=== PATIENT | female | born 1990 | race Caucasian/White ===

== ENCOUNTER 2016-06-10 09:25 | Emergency (ER) | payer MEDICAID, OTHER ==
[~2016-06-10] VITALS: Ht 160 cm; Wt 64.0 kg
[2016-06-10 09:50] LABS: *BILIRUBIN,URIN NEGATIVE (NEGATIVE); *BLOOD, URINE Trace-intact (NEGATIVE); *CLARITY,URINE CLEAR (CLEAR); *COLOR,URINE YELLOW (YELLOW); *KETONES,URINE NEGATIVE (NEGATIVE); *PROTEIN,URINE NEGATIVE (NEGATIVE); *UROBILINOGEN,URINE 0.2 E.U./dl (NORMAL); LEUKOCYTE ESTERASE ,URINE NEGATIVE (NEGATIVE); NITRITE, URINE NEGATIVE (NEGATIVE); PH,URINE 6.5 (5.0-8.0); UGLUCOSE NEGATIVE (NEGATIVE)
[2016-06-10 09:55] LABS: *URINE HCG, QUAL NEGATIVE (NEGATIVE)
[2016-06-10] MEDS ORDERED: DICYCLOMINE HCL 10 MG/5 ML UDC LIQ PO ONE (10:00)
[2016-06-10] MEDS ORDERED: MAG HYDROX/AL HYDROX/SIMETH 30 ML LIQUID UDC PO ONE (10:00)
[2016-06-10] MEDS ORDERED: MAG HYDROX/AL HYDROX/SIMETH 30 ML LIQUID UDC ONE (10:01)
[2016-06-10] MEDS ORDERED: DICYCLOMINE HCL 10 MG/5 ML UDC LIQ ONE ×2 (10:01)
[2016-06-10 10:21] LABS: BACTERIA,URINE FEW /HPF (NONE SEEN); RBC,URINE 0-3 /HPF (0-3); WBC,URINE 0-3 /HPF (0-3)
[2016-06-10 10:22] LABS: MUCUS,URINE FEW /LPF (0-FEW); SQUAMOUS EPITHELIAL CELL,UR MANY /HPF (NONE SEEN)
[2016-06-10] MEDS ORDERED: IV NORMAL SALINE 1000 ML BAG IV ONE (10:30)
[2016-06-10] MEDS ORDERED: HYDROMORPHONE 1 MG/1 ML DISP.SYRIN IV ONE (10:30)
[2016-06-10] MEDS ORDERED: PANTOPRAZOLE SODIUM 40 MG VIAL IV ONE (10:30)
[2016-06-10] MEDS ORDERED: ONDANSETRON 4 MG/2 ML VIAL IV ONE (10:30)
[2016-06-10] MEDS ORDERED: PANTOPRAZOLE SODIUM 40 MG VIAL ONE (10:39)
[2016-06-10] MEDS ORDERED: HYDROMORPHONE 1 MG/1 ML DISP.SYRIN ONE (10:39)
[2016-06-10] MEDS ORDERED: ONDANSETRON 4 MG/2 ML VIAL ONE (10:39)
[2016-06-10 10:50] LABS: BASOPHILS % (AUTO) 0.2 % (0.0-2.0); EOSINOPHILS # (AUTO) 0.1 K/uL (0.0-0.7); EOSINOPHILS % (AUTO) 0.7 % (0.0-7.0); HEMOGLOBIN 15.1 g/dL (10.9-14.3); LYMPHOCYTES # (AUTO) 1.4 K/uL (40.0-85.0); LYMPHOCYTES % (AUTO) 16.3 % (20.5-51.5); MEAN CORPUSCULAR HEMOGLOBIN 25.7 uug (24.7-32.8); MEAN CORPUSCULAR HGB CONC 33 g/dL (32.3-35.6); MEAN CORPUSCULAR VOLUME 78.2 fL (75.5-95.3); MONOCYTES # (AUTO) 0.4 K/uL (2.0-10.0); MONOCYTES % (AUTO) 4.1 % (0.0-11.0); NEUTROPHILS # (AUTO) 6.9 K/uL (1.8-8.9); NEUTROPHILS % (AUTO) 78.7 % (38.5-71.5); PLATELET COUNT (AUTO) 163 K/uL (179-408); RED BLOOD CELL COUNT(AUTO) 5.88 MIL/uL (3.63-4.92); RED CELL DISTRIBUTION WIDTH 14.6 % (12.3-17.7); WHITE BLOOD COUNT (AUTO) 8.8 K/uL (3.8-11.8)
[2016-06-10 10:54] LABS: ALBUMIN 3.9 g/dL (3.4-5.0); BILIRUBIN,DIRECT 0.1 mg/dL (0.0-0.2); BILIRUBIN,TOTAL 0.2 mg/dL (0.2-1.0); CALCIUM 9.3 mg/dL (8.5-10.1); CREATININE 0.7 mg/dL (0.6-1.3); POTASSIUM 4.7 mmol/L (3.5-5.1); TOTAL PROTEIN, SERUM 7.4 g/dL (6.4-8.2)
--- NOTE | 2016-06-10 11:30 | NUR ---
Patient is resting comfortably in bed with eyes closed. Family is at bedside, for discharge after the IVF are done.
--- NOTE | 2016-06-10 11:40 | NUR ---
Patient discharged to home in stable conditon. Written and verbal after care instructions given to patient and spouse. Patient & spouse verbalized understanding of instructions.
--- NOTE | 2016-06-10 11:44 | NUR ---
IV removed. Catheter intact and site benign. Pressure and 4x4 gauze applied to site. No bleeding noted. PATIENT IS PAIN FREE AT THIS TIME.
== END 2016-06-10 11:45 | disposition home or self-care (01) ==
LOC: ER 09:25
DX: K29.70 Gastritis, unspecified, without bleeding (principal); Z88.0 Allergy status to penicillin
CPT/HCPCS: 36415; 80048; 80076; 81001; 83690; 84703; 85025; 96374; 96375; 99284; A4663; C9113; J1170; J2405; J7030

== ENCOUNTER 2016-07-06 04:19 | Emergency (ER) | payer OTHER ==
[~2016-07-06] VITALS: Ht 160 cm; Wt 64.4 kg
--- NOTE | 2016-07-06 04:33 | NUR ---
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 Pt denies dizziness, CP, SOB, no other complaints, no distress noted.
[2016-07-06] MEDS: IV NORMAL SALINE 1000 ML BAG IV ONE (04:52)
[2016-07-06 05:03] LABS: BASOPHILS % (AUTO) 0.5 % (0.0-2.0); EOSINOPHILS # (AUTO) 0.2 K/uL (0.0-0.7); EOSINOPHILS % (AUTO) 1.7 % (0.0-7.0); HEMATOCRIT 41.3 % (37-47); HEMOGLOBIN 13.5 G/DL (12.0-16.0); LYMPHOCYTES # (AUTO) 2.7 K/UL (0.8-4.8); LYMPHOCYTES % (AUTO) 28.8 % (20.5-51.5); MEAN CORPUSCULAR HEMOGLOBIN 25.5 UUG (27.0-31.0); MEAN CORPUSCULAR HGB CONC 33 g/dL (32.0-37.0); MEAN CORPUSCULAR VOLUME 77.7 FL (81.0-99.0); MONOCYTES # (AUTO) 0.5 K/UL (0.1-1.30); MONOCYTES % (AUTO) 4.9 % (0.0-11.0); NEUTROPHILS % (AUTO) 64.1 % (38.5-71.5); PLATELET COUNT (AUTO) 187 K/UL (150-450); RED BLOOD CELL COUNT(AUTO) 5.31 MIL/UL (4.2-5.4); RED CELL DISTRIBUTION WIDTH 15.2 % (11.5-14.5); WHITE BLOOD COUNT (AUTO) 9.4 K/UL (4.0-11.2)
[2016-07-06] MEDS: LIDOCAINE VISCUS 2% 15 ML UDC MM ONE (05:03)
[2016-07-06] MEDS: MAG HYDROX/AL HYDROX/SIMETH 30 ML LIQUID UDC PO ONE (05:03)
[2016-07-06] MEDS: PANTOPRAZOLE SODIUM IV 40 MG in IV DEXTROSE 5% 100 ML IV ONE (05:07)
[2016-07-06] MEDS ORDERED: PANTOPRAZOLE SODIUM 40 MG VIAL ONE (05:08)
[2016-07-06] MEDS ORDERED: MAG HYDROX/AL HYDROX/SIMETH 30 ML LIQUID UDC ONE (05:08)
[2016-07-06] MEDS ORDERED: LIDOCAINE VISCUS 2% 15 ML UDC ONE (05:08)
[2016-07-06 05:09] LABS: ANISOCYTOSIS 1+; HYPOCHROMASIA 1+
[2016-07-06 05:14] LABS: ALANINE AMINOTRANSFERASE 26 U/L (14-59); ALBUMIN 3.6 g/dL (3.4-5.0); ALKALINE PHOSPHATASE 88 U/L (50-136); ASPARTATE AMINOTRANSFERASE 11 U/L (15-37); BILIRUBIN,DIRECT < 0.1 mg/dL (0.0-0.2); BILIRUBIN,TOTAL 0.2 mg/dL (0.2-1.0); CALCIUM 8.9 mg/dL (8.5-10.1); CARBON DIOXIDE 28 mmol/L (21-32); CHLORIDE 104 mmol/L (98-107); CREATININE 0.6 mg/dL (0.6-1.3); GFR 124 mL/min (>60); GLUCOSE 100 mg/dL (74-106); LIPASE 142 U/L (73-393); POTASSIUM 3.6 mmol/L (3.5-5.1); SODIUM SERUM 141 mmol/L (136-145); UREA NITROGEN, BLOOD 11 mg/dL (7-18)
[2016-07-06 05:16] LABS: *BILIRUBIN,URIN NEGATIVE (NEGATIVE); *BLOOD, URINE NEGATIVE (NEGATIVE); *CLARITY,URINE CLEAR (CLEAR); *COLOR,URINE YELLOW (YELLOW); *KETONES,URINE NEGATIVE (NEGATIVE); *PROTEIN,URINE NEGATIVE (NEGATIVE); *UROBILINOGEN,URINE 0.2 E.U./dl (NORMAL); LEUKOCYTE ESTERASE ,URINE NEGATIVE (NEGATIVE); NITRITE, URINE NEGATIVE (NEGATIVE); PH,URINE 8.5 (5.0-8.0); UGLUCOSE NEGATIVE (NEGATIVE)
[2016-07-06 05:23] LABS: *URINE HCG, QUAL NEGATIVE (NEGATIVE); BACTERIA,URINE FEW /HPF (NONE SEEN); RBC,URINE NONE SEEN /HPF (0-3); SQUAMOUS EPITHELIAL CELL,UR MODERATE /HPF (NONE SEEN); WBC,URINE 0-3 /HPF (0-3)
--- NOTE | 2016-07-06 05:25 | NUR ---
GI cocktail noneffective, pt still has same pain, 7-10/05. Will notify
[2016-07-06] MEDS: ONDANSETRON 4 MG/2 ML VIAL IV ONE (05:45)
[2016-07-06] MEDS: MORPHINE SULFATE 2 MG/1 ML DISP.SYRIN IV ONE ×2 (05:45→06:15)
[2016-07-06] MEDS ORDERED: MORPHINE SULFATE 2 MG/1 ML DISP.SYRIN ONE ×2 (05:49→06:22)
[2016-07-06] MEDS ORDERED: ONDANSETRON 4 MG/2 ML VIAL ONE ×2 (05:49→07:11)
[2016-07-06] MEDS ORDERED: DICYCLOMINE HCL 10 MG/5 ML UDC LIQ PO ONE (06:15)
[2016-07-06] MEDS: DICYCLOMINE HCL 10 MG/5 ML UDC LIQ PO ONE (06:20)
[2016-07-06] MEDS ORDERED: DICYCLOMINE HCL 10 MG/5 ML UDC LIQ ONE (06:27)
[2016-07-06] MEDS: HYDROMORPHONE 1 MG/1 ML DISP.SYRIN IV ONE (07:06)
[2016-07-06] MEDS: ONDANSETRON IV *ER 4 MG/2 ML VIAL IV ONE (07:06)
[2016-07-06] MEDS ORDERED: HYDROMORPHONE 1 MG/1 ML DISP.SYRIN ONE (07:11)
--- NOTE | 2016-07-06 07:22 | NUR ---
Pt states pain is 5/10. Removed IV 20g intact, site okay, bandaged. Gave pt RX and d/c instructions, verbalized understanding. Pt's is enroute to pick her up.
== END 2016-07-06 07:25 | disposition home or self-care (01) ==
LOC: ER 04:24
DX: K29.70 Gastritis, unspecified, without bleeding (principal); Z88.0 Allergy status to penicillin
CPT/HCPCS: 36415; 83690; 84703; 85025; A4663; C9113; J1170; J2270; J2405; J7030; J7060

== ENCOUNTER 2016-07-06 23:27 | Emergency (ER) | payer OTHER ==
[~2016-07-06] VITALS: Ht 160 cm; Wt 64.4 kg
--- NOTE | 2016-07-06 23:44 | NUR ---
Pt returning to ER, d/c this AM, c/o midline upper ABD pain, 10/05, denies n/v. States she woke up with hives after d/c this AM, took benadryl which resolved that. No other complaints, no distress noted.
[2016-07-07] MEDS: MAG HYDROX/AL HYDROX/SIMETH 30 ML LIQUID UDC PO ONE (00:10)
[2016-07-07] MEDS: LIDOCAINE VISCUS 2% 15 ML UDC MM ONE (00:10)
[2016-07-07] MEDS: FAMOTIDINE. 20 MG/2 ML VIAL IV ONE (00:15)
[2016-07-07] MEDS ORDERED: LIDOCAINE VISCUS 2% 15 ML UDC ONE (00:17)
[2016-07-07] MEDS ORDERED: MAG HYDROX/AL HYDROX/SIMETH 30 ML LIQUID UDC ONE (00:17)
[2016-07-07] MEDS ORDERED: KETOROLAC TROMETHAMINE 15 MG INJ ONE (00:17)
[2016-07-07] MEDS ORDERED: FAMOTIDINE. 20 MG/2 ML VIAL IV ONE (00:18)
[2016-07-07] MEDS: KETOROLAC TROMETHAMINE 15 MG INJ IV ONE (00:21)
--- NOTE | 2016-07-07 00:22 | NUR ---
Pt states the GI cocktail did not help much, pain went from 8/10 to 7/10. Admin Toradol.
[2016-07-07 00:24] LABS: CALCIUM 8.9 mg/dL (8.5-10.1); CREATININE 0.6 mg/dL (0.6-1.3)
[2016-07-07 00:30] LABS: ALBUMIN 3.3 g/dL (3.4-5.0); BILIRUBIN,DIRECT 0.1 mg/dL (0.0-0.2); BILIRUBIN,TOTAL 0.3 mg/dL (0.2-1.0); TOTAL PROTEIN, SERUM 6.7 g/dL (6.4-8.2)
[2016-07-07 00:31] LABS: BASOPHILS % (AUTO) 0.1 % (0.0-2.0); EOSINOPHILS # (AUTO) 0.2 K/uL (0.0-0.7); EOSINOPHILS % (AUTO) 1.6 % (0.0-7.0); HEMATOCRIT 40.7 % (37-47); HEMOGLOBIN 13.4 G/DL (12.0-16.0); LYMPHOCYTES # (AUTO) 1.4 K/UL (0.8-4.8); LYMPHOCYTES % (AUTO) 13.6 % (20.5-51.5); MEAN CORPUSCULAR HEMOGLOBIN 25.4 UUG (27.0-31.0); MEAN CORPUSCULAR HGB CONC 33 g/dL (32.0-37.0); MEAN CORPUSCULAR VOLUME 77.3 FL (81.0-99.0); MONOCYTES # (AUTO) 0.4 K/UL (0.1-1.30); MONOCYTES % (AUTO) 3.6 % (0.0-11.0); NEUTROPHILS # (AUTO) 8.2 K/UL (1.8-8.9); NEUTROPHILS % (AUTO) 81.1 % (38.5-71.5); PLATELET COUNT (AUTO) 193 K/UL (150-450); RED BLOOD CELL COUNT(AUTO) 5.26 MIL/UL (4.2-5.4); WHITE BLOOD COUNT (AUTO) 10.3 K/UL (4.0-11.2)
[2016-07-07 00:42] LABS: ANISOCYTOSIS 1+; HYPOCHROMASIA 1+
--- NOTE | 2016-07-07 00:48 | NUR ---
Pt states pain is now down to 2/10. Removed IV, 20g, left hand, intact, site okay, bandaged. Gave pt d/c instructions, verbalized understanding.
== END 2016-07-07 00:56 | disposition home or self-care (01) ==
LOC: ER 23:33
DX: R10.13 Epigastric pain (principal); F10.20 Alcohol dependence, uncomplicated; Z88.0 Allergy status to penicillin
CPT/HCPCS: 36415; 83690; 84703; 85025; A4663; J1885; J3490

== ENCOUNTER 2017-02-21 16:59 | Emergency (ER) | payer MEDICAID, OTHER ==
[~2017-02-21] VITALS: Ht 160 cm; Wt 70.8 kg
[2017-02-21 18:05] LABS: *BILIRUBIN,URIN NEGATIVE (NEGATIVE); *BLOOD, URINE Trace-intact (NEGATIVE); *COLOR,URINE DARK YELLOW (YELLOW); *KETONES,URINE NEGATIVE (NEGATIVE); *PROTEIN,URINE NEGATIVE (NEGATIVE); *UROBILINOGEN,URINE 0.2 E.U./dl (NORMAL); LEUKOCYTE ESTERASE ,URINE TRACE (NEGATIVE); NITRITE, URINE POSITIVE (NEGATIVE); UGLUCOSE NEGATIVE (NEGATIVE)
[2017-02-21 18:07] LABS: *URINE HCG, QUAL NEGATIVE (NEGATIVE)
[2017-02-21 18:21] LABS: *CLARITY,URINE HAZY (CLEAR)
[2017-02-21 18:22] LABS: BACTERIA,URINE FEW /HPF (NONE SEEN); SQUAMOUS EPITHELIAL CELL,UR MODERATE /HPF (NONE SEEN); URINE AMORPHOUS PHOSPHATES FEW /HPF
--- NOTE | 2017-02-21 19:40 | NUR ---
MSE COMPLETED, PT D/C'D HOME, ACI/RX X1 GIVEN. PT AMBULATED W/O DIFF/TOOK ALL BELONGINGS
[2017-02-21 19:42] VITALS: BP 129/82
== END 2017-02-21 19:43 | disposition home or self-care (01) ==
LOC: ER 16:59
DX: N39.0 Urinary tract infection, site not specified (principal); Z88.0 Allergy status to penicillin
CPT/HCPCS: 81001; 84703; 99284; A4663

== ENCOUNTER 2018-09-12 11:52 | Emergency (ER) | payer MEDICAID ==
[~2018-09-12] VITALS: Ht 160 cm; Wt 61.2 kg
--- NOTE | 2018-09-12 12:09 | NUR ---
PT WAS EVALUATED BY DR BONILLA. PT WAS D/C'd TO HOME. D/C INSTRUCTIONS GIVEN TO THE PT.
[2018-09-12 12:10] VITALS: BP 125/70
== END 2018-09-12 12:12 | disposition home or self-care (01) ==
LOC: ER 11:54
DX: K29.70 Gastritis, unspecified, without bleeding (principal); Z88.0 Allergy status to penicillin
CPT/HCPCS: A4663

== ENCOUNTER 2018-09-14 07:01 | Emergency (ER) | payer MEDICAID ==
[~2018-09-14] VITALS: Ht 160 cm; Wt 60.3 kg
--- NOTE | 2018-09-14 07:20 | NUR ---
PT IS IN ROOM #2B. DR SHAH EVALUATED THE PT.
[2018-09-14] MEDS ORDERED: MORPHINE SULFATE 2 MG/1 ML DISP.SYRIN IV ONE (07:30)
[2018-09-14] MEDS ORDERED: IV NORMAL SALINE 1000 ML BAG IV ONE (07:30)
[2018-09-14] MEDS ORDERED: ONDANSETRON 4 MG/2 ML VIAL IV ONE (07:30)
[2018-09-14] MEDS ORDERED: MORPHINE SULFATE 2 MG/1 ML DISP.SYRIN ONE (07:42)
[2018-09-14] MEDS ORDERED: ONDANSETRON 4 MG/2 ML VIAL ONE (07:42)
[2018-09-14 07:43] LABS: BASOPHILS % (AUTO) 0.4 % (0.0-2.0); EOSINOPHILS % (AUTO) 0.5 % (0.0-7.0); HEMOGLOBIN 14.5 g/dL (10.9-14.3); LYMPHOCYTES # (AUTO) 1.7 K/uL (20.0-40.0); LYMPHOCYTES % (AUTO) 20.1 % (20.5-51.5); MEAN CORPUSCULAR HEMOGLOBIN 28.8 uug (24.7-32.8); MEAN CORPUSCULAR HGB CONC 34 g/dL (32.3-35.6); MEAN CORPUSCULAR VOLUME 85.4 fL (75.5-95.3); MONOCYTES # (AUTO) 0.5 K/uL (2.0-10.0); MONOCYTES % (AUTO) 5.3 % (0.0-11.0); NEUTROPHILS # (AUTO) 6.4 K/uL (1.8-8.9); NEUTROPHILS % (AUTO) 73.7 % (38.5-71.5); PLATELET COUNT (AUTO) 176 K/uL (179-408); RED BLOOD CELL COUNT(AUTO) 5.04 MIL/uL (3.63-4.92); WHITE BLOOD COUNT (AUTO) 8.6 K/uL (3.8-11.8)
[2018-09-14 07:50] LABS: CREATININE 0.8 mg/dL (0.6-1.3); POTASSIUM 3.8 mmol/L (3.5-5.1)
[2018-09-14 08:00] LABS: *BILIRUBIN,URIN NEGATIVE (NEGATIVE); *CLARITY,URINE CLEAR (CLEAR); *COLOR,URINE YELLOW (YELLOW); *KETONES,URINE NEGATIVE (NEGATIVE); BILIRUBIN,DIRECT 0.2 mg/dL (0.0-0.2); BILIRUBIN,TOTAL 0.5 mg/dL (0.2-1.0); LEUKOCYTE ESTERASE ,URINE NEGATIVE (NEGATIVE); NITRITE, URINE NEGATIVE (NEGATIVE); TOTAL PROTEIN, SERUM 7.6 g/dL (6.4-8.2); UGLUCOSE NEGATIVE (NEGATIVE)
[2018-09-14 08:02] LABS: *BLOOD, URINE TRACE (NEGATIVE)
[2018-09-14 08:11] LABS: BACTERIA,URINE FEW /HPF (NONE SEEN); RBC,URINE 0-3 /HPF (0-3); SQUAMOUS EPITHELIAL CELL,UR FEW /HPF (NONE SEEN); WBC,URINE 0-3 /HPF (0-3)
[2018-09-14] MEDS ORDERED: MORPHINE SULFATE 4 MG/1 ML DISP.SYRIN ONE (09:39)
[2018-09-14] MEDS ORDERED: MORPHINE SULFATE 4 MG/1 ML DISP.SYRIN IV ONE (09:45)
[2018-09-14] MEDS ORDERED: METRONIDAZOLE 500 MG TABLET PO ONE (10:15)
[2018-09-14] MEDS ORDERED: HYDROMORPHONE 1 MG/1 ML DISP.SYRIN IV ONE (10:15)
[2018-09-14] MEDS ORDERED: KETOROLAC TROMETHAMINE 30 MG INJ IVP ONE (10:15)
[2018-09-14] MEDS ORDERED: LEVOFLOXACIN 500 MG TABLET PO ONE (10:15)
[2018-09-14] MEDS ORDERED: HYDROMORPHONE 1 MG/1 ML DISP.SYRIN ONE (10:23)
[2018-09-14] MEDS ORDERED: KETOROLAC TROMETHAMINE 30 MG INJ ONE (10:24)
[2018-09-14] MEDS ORDERED: LEVOFLOXACIN 500 MG TABLET ONE (10:26)
[2018-09-14] MEDS ORDERED: METRONIDAZOLE 500 MG TABLET ONE (10:26)
--- NOTE | 2018-09-14 10:41 | NUR ---
PT WAS D/C'd TO HOME. D/C INSTRUCTIONS GIVEN TO THE PT.
[2018-09-14 10:59] VITALS: BP 121/66
--- NOTE | 2018-09-14 10:59 | NUR ---
PT WAS D/C'd TO HOME. D/C INSTRUCTIONS GIVEN TO THE PT.
== END 2018-09-14 11:00 | disposition home or self-care (01) ==
LOC: ER 07:02
DX: K57.32 Diverticulitis of large intestine without perforation or abscess without bleeding (principal); Z88.0 Allergy status to penicillin
CPT/HCPCS: 36415; 74176; 76705; 76856; 80048; 80076; 81000; 81001; 84702; 85025; 96374; 96375; 96376; 99284; J1170; J1885; J2270 ×2; J2405; A4663; J7030

== ENCOUNTER 2018-10-23 18:28 | Emergency (ER) | payer MEDICAID ==
[~2018-10-23] VITALS: Ht 160 cm; Wt 60.8 kg
--- NOTE | 2018-10-23 19:30 | NUR ---
RECEIVED PT C/O ABDOMINAL PN FROM HOME PPMDHX: DIVERTICULITIS LAST WEEK, RECEIVED ABX , +FEVER CURRENTLYD DENIES CHILLS, NVD, PT NAD ABLE TO SPEAK CLEAR COMPLETE SENTENCES, AMBULATORY WITH STABLE GAIT. DENIES GUARDING, DENIES RESTLESSNESS. MD AT BEDSIDE FOR HX AND ROLAN
[2018-10-23] MEDS ORDERED: IV NORMAL SALINE 1000 ML BAG IV ONE (20:15)
[2018-10-23 20:26] LABS: *BILIRUBIN,URIN NEGATIVE (NEGATIVE); *COLOR,URINE YELLOW (YELLOW); *KETONES,URINE NEGATIVE (NEGATIVE); LEUKOCYTE ESTERASE ,URINE TRACE (NEGATIVE); NITRITE, URINE NEGATIVE (NEGATIVE); UGLUCOSE NEGATIVE (NEGATIVE)
[2018-10-23 20:28] LABS: *URINE HCG, QUAL NEGATIVE (NEGATIVE)
[2018-10-23 20:32] LABS: BASOPHILS % (AUTO) 0.3 % (0.0-2.0); EOSINOPHILS % (AUTO) 0.3 % (0.0-7.0); HEMATOCRIT 42.7 % (31.2-41.9); HEMOGLOBIN 14.4 g/dL (10.9-14.3); LYMPHOCYTES # (AUTO) 1.3 K/uL (20.0-40.0); LYMPHOCYTES % (AUTO) 15.8 % (20.5-51.5); MEAN CORPUSCULAR HEMOGLOBIN 28.5 uug (24.7-32.8); MEAN CORPUSCULAR HGB CONC 34 g/dL (32.3-35.6); MEAN CORPUSCULAR VOLUME 84.2 fL (75.5-95.3); MONOCYTES # (AUTO) 0.4 K/uL (2.0-10.0); MONOCYTES % (AUTO) 4.8 % (0.0-11.0); NEUTROPHILS # (AUTO) 6.6 K/uL (1.8-8.9); NEUTROPHILS % (AUTO) 78.8 % (38.5-71.5); PLATELET COUNT (AUTO) 155 K/uL (179-408); RED BLOOD CELL COUNT(AUTO) 5.07 MIL/uL (3.63-4.92); WHITE BLOOD COUNT (AUTO) 8.4 K/uL (3.8-11.8)
[2018-10-23 20:37] LABS: *BLOOD, URINE TRACE (NEGATIVE); *CLARITY,URINE CLOUDY (CLEAR)
[2018-10-23 20:39] LABS: BACTERIA,URINE MODERATE /HPF (NONE SEEN); MUCUS,URINE MANY /LPF (0-FEW); SQUAMOUS EPITHELIAL CELL,UR MANY /HPF (NONE SEEN); URINE AMORPHOUS PHOSPHATES MODERATE /HPF
[2018-10-23 20:41] LABS: CREATININE 0.8 mg/dL (0.6-1.3); POTASSIUM 4.1 mmol/L (3.5-5.1)
[2018-10-23 20:52] LABS: BILIRUBIN,DIRECT 0.1 mg/dL (0.0-0.2); BILIRUBIN,TOTAL 0.4 mg/dL (0.2-1.0); TOTAL PROTEIN, SERUM 7.8 g/dL (6.4-8.2)
[2018-10-23] MEDS ORDERED: SULFAMETH/TRIMETH 800/160 MG TABLET PO ONE (21:30)
--- NOTE | 2018-10-23 21:40 | NUR ---
Patient discharged to home in stable conditon. Written and verbal after care instructions given. Patient verbalizes understanding of instructions.
[2018-10-23] MEDS ORDERED: SULFAMETH/TRIMETH 800/160 MG TABLET ONE (21:42)
[2018-10-23 23:15] VITALS: BP 120/80
== END 2018-10-23 21:40 | disposition home or self-care (01) ==
LOC: ER 18:28
DX: N39.0 Urinary tract infection, site not specified (principal); Z88.0 Allergy status to penicillin
CPT/HCPCS: 36415; 83690; 84703; 85025; 87086; A4663; J7030

== ENCOUNTER 2019-02-15 11:00 | Emergency (ER) | payer MEDICAID ==
[~2019-02-15] VITALS: Ht 160 cm; Wt 63.5 kg
--- NOTE | 2019-02-15 11:20 | NUR ---
Patient ambulated with stable gait. A/Ox4. Patient came for c/o left sided lump on her breast.
--- NOTE | 2019-02-15 11:31 | NUR ---
Female press offbearer, Bessy nursing supervisor clam bed, accompanied female patient for breast exam.
[2019-02-15 11:44] VITALS: BP 131/75
--- NOTE | 2019-02-15 11:44 | NUR ---
Patient discharged to home in stable conditon. Written and verbal after care instructions given. Patient verbalizes understanding of instructions. Patient ambulated with stable gait.
== END 2019-02-15 11:47 | disposition home or self-care (01) ==
LOC: ER 11:00
DX: N60.12 Diffuse cystic mastopathy of left breast (principal); Z88.0 Allergy status to penicillin
CPT/HCPCS: A4663

== ENCOUNTER 2019-02-25 22:39 | Emergency (ER) | payer MEDICAID ==
[~2019-02-25] VITALS: Ht 160 cm; Wt 61.2 kg
[2019-02-25] MEDS ORDERED: [UNRECOGNIZED DRUG - REMARK] (22:52)
--- NOTE | 2019-02-25 23:35 | NUR ---
PT WAS FR HOME AMBULATORY W/ STABLE GAIT L BREAST TENDERNESS AND PAIN X1WK LMP [id number] PT AOX4 ABLE TO SPEAK CLEAR AND COMPLETE SENTENCES DENIES FEVERS/CHILLS/NVD/JOINT PAIN MONITORED ACCORDINGLY
[2019-02-25] MEDS ORDERED: KETOROLAC TROMETHAMINE 30 MG INJ ONE (23:43)
[2019-02-25] MEDS ORDERED: VANCOMYCIN IV 200 ML ONE (23:43)
[2019-02-25] MEDS ORDERED: CEFTRIAXONE /D5W 50ML IVPB **ER PYXIS IV ONE (23:43)
[2019-02-25] MEDS ORDERED: CEFTRIAXONE 1 G in IV DEXTROSE 5% 50 ML IV ONE (23:45)
[2019-02-25] MEDS ORDERED: KETOROLAC TROMETHAMINE 30 MG INJ IVP ONE (23:45)
[2019-02-25] MEDS ORDERED: VANCOMYCIN IV 1,000 MG in IV DEXTROSE 5% 250 ML IV ONE (23:45)
[2019-02-26] MEDS ORDERED: diphenhydrAMINE 50 MG/1 ML VIAL ONE (00:29)
[2019-02-26] MEDS ORDERED: diphenhydrAMINE 50 MG/1 ML VIAL IV ONE (00:30)
--- NOTE | 2019-02-26 00:33 | NUR ---
PT DESCRIBED GENERALIZED PRURITUS AFTER 18MINS INFUSION OF VANCOMYCIN ABX ON HOLD PT ABLE TO TOLERATE BENADRYL PER IV ORDERED
[2019-02-26] MEDS ORDERED: MORPHINE SULFATE 4 MG/1 ML DISP.SYRIN IV ONE (01:00)
[2019-02-26] MEDS ORDERED: ONDANSETRON 4 MG/2 ML VIAL IV ONE (01:00)
[2019-02-26] MEDS ORDERED: CLINDAMYCIN PHOSPHATE IV 900 MG in IV DEXTROSE 5% 100 ML IV ONE (01:00)
[2019-02-26] MEDS ORDERED: MORPHINE SULFATE 4 MG/1 ML DISP.SYRIN ONE (01:50)
[2019-02-26] MEDS ORDERED: CLINDAMYCIN PHOSPHATE 900 MG/6 ML VIAL ONE (01:50)
[2019-02-26] MEDS ORDERED: ONDANSETRON 4 MG/2 ML VIAL ONE (01:51)
--- NOTE | 2019-02-26 03:24 | NUR ---
Patient discharged to home in stable conditon. Written and verbal after care instructions given. Patient verbalizes understanding of instructions. AMBULATORY W/ STABLE GAIT ALL BELONGINGS W/ PT
[2019-02-26 03:25] VITALS: BP 135/89
== END 2019-02-26 03:26 | disposition home or self-care (01) ==
LOC: ER 22:44
DX: N61.0 Mastitis without abscess (principal); Z88.0 Allergy status to penicillin; Z79.2 Long term (current) use of antibiotics; Z79.899 Other long term (current) drug therapy
CPT/HCPCS: 87070; 96365; 96366; 96368; 96375; 99283; J0696; J1200; J1885; J2270; J2405; J3370; J3490; J7060; A4663

== ENCOUNTER 2019-02-28 16:23 | Emergency (ER) | payer MEDICAID ==
[~2019-02-28] VITALS: Ht 160 cm; Wt 61.2 kg
[~2019-02-28 16:23] MED LIST: [UNRECOGNIZED DRUG - REMARK]
[2019-02-28] MEDS ORDERED: CEPH-569 PO (16:42)
[2019-02-28] MEDS ORDERED: CLIN300C11 PO (16:42)
[2019-02-28] MEDS ORDERED: PIPERACILLIN SODIUM/TAZOBACTAM 3.375 G in IV DEXTROSE 5% 50 ML IV ONE (17:00)
[2019-02-28] MEDS ORDERED: LEVOFLOXACIN 750MG/D5W 150 ML IV ONE ×2 (17:00→17:11)
[2019-02-28] MEDS ORDERED: PIPERACILLIN/TAZOBACTAM/D5W 50 ML IV ONE (17:11)
[2019-02-28 17:16] LABS: BASOPHILS % (AUTO) 0.3 % (0.0-2.0); EOSINOPHILS # (AUTO) 0.1 K/uL (0.0-0.7); EOSINOPHILS % (AUTO) 1.6 % (0.0-7.0); HEMATOCRIT 43.7 % (31.2-41.9); HEMOGLOBIN 14.4 g/dL (10.9-14.3); LYMPHOCYTES # (AUTO) 1.9 K/uL (20.0-40.0); LYMPHOCYTES % (AUTO) 21.2 % (20.5-51.5); MEAN CORPUSCULAR HEMOGLOBIN 28.5 uug (24.7-32.8); MEAN CORPUSCULAR HGB CONC 33 g/dL (32.3-35.6); MEAN CORPUSCULAR VOLUME 86.4 fL (75.5-95.3); MONOCYTES # (AUTO) 0.3 K/uL (2.0-10.0); MONOCYTES % (AUTO) 3.5 % (0.0-11.0); NEUTROPHILS # (AUTO) 6.5 K/uL (1.8-8.9); NEUTROPHILS % (AUTO) 73.4 % (38.5-71.5); PLATELET COUNT (AUTO) 225 K/uL (179-408); RED BLOOD CELL COUNT(AUTO) 5.06 MIL/uL (3.63-4.92); WHITE BLOOD COUNT (AUTO) 8.8 K/uL (3.8-11.8)
[2019-02-28 17:25] LABS: CARBON DIOXIDE 26 mmol/L (21-32); CHLORIDE 101 mmol/L (98-107); CREATININE 0.8 mg/dL (0.6-1.3); GLUCOSE 126 mg/dL (74-106); POTASSIUM 3.9 mmol/L (3.5-5.1); UREA NITROGEN, BLOOD 10 mg/dL (7-18)
[2019-02-28] MEDS ORDERED: ONDANSETRON 4 MG/2 ML VIAL ONE (17:28)
[2019-02-28] MEDS ORDERED: MORPHINE SULFATE 4 MG/1 ML DISP.SYRIN ONE (17:28)
[2019-02-28] MEDS ORDERED: ONDANSETRON 4 MG/2 ML VIAL IV ONE (17:30)
[2019-02-28] MEDS ORDERED: MORPHINE SULFATE 2 MG/1 ML DISP.SYRIN IV ONE (17:30)
[2019-02-28 17:45] LABS: ALANINE AMINOTRANSFERASE 18 U/L (14-59); ALKALINE PHOSPHATASE 71 U/L (50-136); ASPARTATE AMINOTRANSFERASE 9 U/L (15-37); BILIRUBIN,DIRECT < 0.1 mg/dL (0.0-0.2); BILIRUBIN,TOTAL 0.2 mg/dL (0.1-1.0); TOTAL PROTEIN, SERUM 8.5 g/dL (6.4-8.2)
--- NOTE | 2019-02-28 18:00 | NUR ---
talked to lisbet at [facility], faxed the clinical to [phone]
--- NOTE | 2019-02-28 19:15 | NUR ---
lisbet from [facility] called. pt going to [facility] room 306b, .
--- NOTE | 2019-02-28 19:37 | NUR ---
Donte patient case manager called back with ETA of ambulance pick. ETA is 45mins with [facility] ambulance
--- NOTE | 2019-02-28 19:39 | NUR ---
gave report to lauren at [facility]. transfer arrangement still pending on [facility] [employer].
--- NOTE | 2019-02-28 20:11 | NUR ---
Gave SBAR report to [facility] unit [facility] who will transfer patient to [facility].
--- NOTE | 2019-02-28 20:25 | NUR ---
Patient transfer to [facility] with no distress noted.
== END 2019-02-28 20:26 | disposition short-term general hospital (02) ==
LOC: ER 16:23
DX: N61.1 Abscess of the breast and nipple (principal); Z88.0 Allergy status to penicillin; Z79.2 Long term (current) use of antibiotics; Z79.899 Other long term (current) drug therapy
CPT/HCPCS: 71045; 80048; 80076; 83605 ×2; 84145; 84484; 85025; 85730; 87040 ×2; 93005; 96365; 96366; 96368; 96375; 99285; J1956; J2270; J2405; J2543; 36415; 70030-TC; A4663

== ENCOUNTER 2020-10-21 03:13 | Emergency (ER) | payer MEDICAID ==
[~2020-10-21] VITALS: Ht 160 cm; Wt 70.3 kg
[~2020-10-21 03:13] MED LIST changes: +CEPH-569 PO; +CLIN300C12 PO; -[UNRECOGNIZED DRUG - REMARK]
[2020-10-21 03:41] LABS: MEAN CORPUSCULAR HEMOGLOBIN 28.6 uug (24.7-32.8); MEAN CORPUSCULAR VOLUME 85.9 fL (75.5-95.3); PLATELET COUNT (AUTO) 212 K/uL (179-408)
[2020-10-21 03:51] LABS: CARBON DIOXIDE 25 mmol/L (21-32); CHLORIDE 103 mmol/L (98-107); CREATININE 0.8 mg/dL (0.6-1.3); GLUCOSE 127 mg/dL (74-106); POTASSIUM 3.8 mmol/L (3.5-5.1); UREA NITROGEN, BLOOD 11 mg/dL (7-18)
[2020-10-21 03:54] LABS: MAGNESIUM 1.9 mg/dL (1.8-2.4); PHOSPHOROUS 2.7 mg/dL (2.5-4.9)
[2020-10-21 03:57] LABS: ALANINE AMINOTRANSFERASE 13 U/L (14-59); ALKALINE PHOSPHATASE 61 U/L (50-136); ASPARTATE AMINOTRANSFERASE 9 U/L (15-37); BILIRUBIN,DIRECT 0.1 mg/dL (0.0-0.2); BILIRUBIN,TOTAL 0.1 mg/dL (0.2-1.0); LIPASE 76 U/L (73-393); TOTAL PROTEIN, SERUM 7.4 g/dL (6.4-8.2)
[2020-10-21] MEDS ORDERED: HYDROMORPHONE 1 MG/1 ML DISP.SYRIN ONE (03:57)
[2020-10-21] MEDS ORDERED: LIDOCAINE VISCUS 2% 15 ML UDC ONE (03:58)
[2020-10-21] MEDS ORDERED: MAG HYDROX/AL HYDROX/SIMETH 30 ML LIQUID UDC ONE (03:58)
[2020-10-21] MEDS ORDERED: FAMOTIDINE. 20 MG/2 ML VIAL IV ONE (03:58)
[2020-10-21] MEDS ORDERED: ONDANSETRON 4 MG/2 ML VIAL ONE (03:58)
[2020-10-21] MEDS: IV NORMAL SALINE 1000 ML BAG IV ONE (04:00)
[2020-10-21] MEDS: FAMOTIDINE. 20 MG/2 ML VIAL IV ONE (04:01)
[2020-10-21] MEDS: HYDROMORPHONE 1 MG/1 ML DISP.SYRIN IV ONE (04:03)
[2020-10-21] MEDS: ACETAMINOPHEN ES 500 MG TABLET PO ONE (04:04)
[2020-10-21] MEDS: ONDANSETRON 4 MG/2 ML VIAL IV ONE (04:04)
[2020-10-21 04:09] LABS: *BILIRUBIN,URIN NEGATIVE (NEGATIVE); *BLOOD, URINE NEGATIVE (NEGATIVE); *CLARITY,URINE CLEAR (CLEAR); *COLOR,URINE YELLOW (YELLOW); *KETONES,URINE NEGATIVE (NEGATIVE); *UROBILINOGEN,URINE 0.2 E.U./dl (NORMAL); LEUKOCYTE ESTERASE ,URINE NEGATIVE (NEGATIVE); NITRITE, URINE NEGATIVE (NEGATIVE); UGLUCOSE NEGATIVE (NEGATIVE)
[2020-10-21 04:22] LABS: *AMPHETAMINE, URINE NEGATIVE (NEGATIVE); *CANNABINOID, URINE NEGATIVE (NEGATIVE); *COCCAINE, URINE NEGATIVE (NEGATIVE); *OPIATE, URINE NEGATIVE (NEGATIVE); *PHENCYCLIDINE SCREEN,URINE NEGATIVE (NEGATIVE)
[2020-10-21] MEDS ORDERED: IOHEXOL 300MG/ML 100 ML INFUS..BTL ONE (04:44)
[2020-10-21] MEDS ORDERED: SWABABLE VALVE TRANSFER SET EA MC ONE (04:44)
[2020-10-21] MEDS ORDERED: IV NORMAL SALINE 250 ML IV ONE (04:45)
[2020-10-21] MEDS: MAG HYDROX/AL HYDROX/SIMETH 30 ML LIQUID UDC PO ONE (05:30)
[2020-10-21] MEDS: LIDOCAINE VISCUS 2% 15 ML UDC MM ONE (05:30)
--- NOTE | 2020-10-21 06:00 | NUR ---
Patient sleeping with no distress noted.
[2020-10-21] MEDS ORDERED: ONDA4TAB11 PO (06:26)
[2020-10-21] MEDS ORDERED: OMEP40CA21 PO (06:26)
--- NOTE | 2020-10-21 06:40 | NUR ---
IV removed. Catheter intact and site benign. Pressure and 4x4 gauze applied to site. No bleeding noted.
--- NOTE | 2020-10-21 06:47 | NUR ---
Patient discharged to home in stable condition with boyfriend taking patient home. Written and verbal after care instructions given. Patient verbalizes understanding of instructions. Stressed follow up or return to ER for worsening s/s.
[2020-10-21 06:51] VITALS: BP 128/80
[2020-10-21] MEDS ORDERED: TINI500T10 PO (23:08)
[2020-10-21] MEDS ORDERED: CLAR-45 PO (23:08)
[2020-10-21] MEDS ORDERED: OXYC-128 PO (23:08)
[2020-10-21] MEDS ORDERED: AMOX500T2 PO (23:08)
== END 2020-10-21 06:52 | disposition home or self-care (01) ==
LOC: ER 03:20
DX: K29.00 Acute gastritis without bleeding (principal); D25.9 Leiomyoma of uterus, unspecified; Z88.0 Allergy status to penicillin; N71.9 Inflammatory disease of uterus, unspecified
CPT/HCPCS: 36415; 74177; 80048; 80076; 80307; 81003; 83690; 83735; 84100; 84702; 85025; 87491; 96361; 96374; 96375; 99284; J1170; J2405; J3490; Q9967; A4663; J7030; J7050

== ENCOUNTER 2020-10-21 22:25 | Emergency (ER) | payer MEDICAID ==
[~2020-10-21] VITALS: Ht 167.6 cm; Wt 70.3 kg
[~2020-10-21 22:25] MED LIST changes: +OMEP40CA21 PO; +ONDA4TAB11 PO
--- NOTE | 2020-10-21 22:40 | NUR ---
PT AMBULATED TO ER WITH C/O BURNING ABDOMINAL PAIN, ALSO NOTED TO BE SEEN LAST NIGHT FOR SIMILAR COMPLAINT. A/O X4, NO SOB OR LABORED BREATHING.
[2020-10-21] MEDS ORDERED: AMOX500T2 PO (23:08)
[2020-10-21] MEDS ORDERED: CLAR-45 PO (23:08)
[2020-10-21] MEDS ORDERED: OXYC-128 PO (23:08)
[2020-10-21] MEDS ORDERED: TINI500T18 PO (23:08)
[2020-10-21] MEDS ORDERED: OXYCODONE/APAP 5-325 MG TABLET PO ONE (23:15)
[2020-10-21] MEDS ORDERED: ONDANSETRON ODT 4 MG TAB.RAPDIS SL ONE (23:15)
[2020-10-21] MEDS ORDERED: AMOXicillin 250 MG CAPSULE PO ONE (23:15)
[2020-10-21] MEDS ORDERED: OXYCODONE/APAP 5-325 MG TABLET ONE (23:18)
[2020-10-21] MEDS ORDERED: AMOXicillin 250 MG CAPSULE ONE (23:18)
[2020-10-21] MEDS ORDERED: ONDANSETRON ODT 4 MG TAB.RAPDIS ONE (23:18)
--- NOTE | 2020-10-21 23:23 | NUR ---
Patient discharged to home in stable condition. A/O x4, denies any pain/discomfort. Written and verbal after care instructions given. Patient verbalizes understanding of instructions. Stressed follow up or return to ER for worsening s/s. steady gait.
[2020-10-21 23:24] VITALS: BP 124/77
== END 2020-10-21 23:20 | disposition home or self-care (01) ==
LOC: ER 22:27
DX: K29.70 Gastritis, unspecified, without bleeding (principal); Z88.0 Allergy status to penicillin
CPT/HCPCS: A4663; Q0162